=== PATIENT | female | born 1995 | race American Indian/Alaskan Native ===

== ENCOUNTER 2018-08-20 02:17 | Emergency (ER) | payer SELFPAY ==
[2018-08-20 02:35] VITALS: BP 101/62; PULSE 119; RESP 18; TEMP 98.7; O2SAT 99
[2018-08-20] MEDS ORDERED: Lidocaine Hydrochloride 1% 10 ML ONE (02:44)
--- NOTE | 2018-08-20 04:07 | ED PDOC ---
HPI: Trauma/Fall - HPI Time Seen by Provider: 08/20/18 02:37 Chief Complaint (Nursing): Abnormal Skin Integrity Chief Complaint (Provider): Laceration to the upper lip History Per: Patient History/Exam Limitations: no limitations Onset/Duration Of Symptoms: Mins (forty minutes) Severity: Mild Additional Complaint(s): Pt presents to the ED after slipping and falling during her birthday celebration earlier this evening and causing a 3cm laceration to the upper internal lip. Pt bleeding is undercontrol but there is significant swelling and ecchymosis surrounding the upper lip and the maxilla. Pt denies nausea, vomiting, diarhhea and LOC Past Medical History Reviewed: Historical Data, Nursing Documentation, Vital Signs Vital Signs: Last Vital Signs Temp 98.7 F 08/20/18 02:26 Pulse 119 H 08/20/18 02:26 Resp 18 08/20/18 02:26 BP 101/62 08/20/18 02:26 Pulse Ox 99 08/20/18 02:26 - Medical History PMH: Asthma Denies: Chronic Kidney Disease - Family History Family History: States: Unknown Family Hx - Home Medications Home Medications: Ambulatory Orders Medication Instructions Recorded Amoxicillin/Clavulanate [Augmentin 1 tab PO BID #20 tab 08/20/18 875 MG-125 MG] - Allergies Allergies/Adverse Reactions: Allergies Allergy/AdvReac Type Severity Reaction Status Date / Time sheridan Allergy Mild RASH Verified 08/20/18 02:35 Review of Systems ROS Statement: Except As Marked, All Systems Reviewed And Found Negative ENT: Positive for: Other (facial pain and laceration) Physical Exam - Reviewed Nursing Documentation Reviewed: Yes Vital Signs Reviewed: Yes - Physical Exam Appears: Positive for: Well, Non-toxic, No Acute Distress. Negative for: Uncomfortable Head Exam: Negative for: ATRAUMATIC, NORMAL INSPECTION (left side upper interior lip with a 3cm horizontal laceration; pt indicates that she also chipped a tooth, apparently #12, but patient is not certain as there is less than superior dentition) Skin: Positive for: Normal Color, Warm, Dry. Negative for: Diaphoresis, Pallor, Rash Eye Exam: Positive for: Normal appearance, PERRL. Negative for: Nystagmus, Periorbital swelling, Periorbital tenderness ENT: Negative for: Normal ENT Inspection (see note above) Neck: Positive for: Normal, Supple Cardiovascular/Chest: Positive for: Regular Rate, Rhythm Respiratory: Positive for: Normal Breath Sounds Pulses-Dorsalis Pedis (L): 2+ Pulses-Dorsalis Pedis (R): 2+ Pulses-Radial (L): 2+ Pulses-Radial (R): 2+ - ECG O2 Sat by Pulse Oximetry: 99 Medical Decision Making Medical Decision Making: I: Laceration to the lip r/o fx or other trauma to maxilla P: CT facial Lac repair Pt has refused the CT of the facial bones and will execute a AMA form prior to discharge Lac repair performed Pt is stable for discharge with rx of augmentin Procedures - Additional Procedures Progress: Pt laceration was explored for foreign bodies and irrigated with 300ml of NS; pt was anestiz with 3ml of 1% lidocaine without epinephrine; utilizing sterile precedures, three 5-0 monocril sutures were placed using interrupted placement; the wound edges were well approximated and the patinet tolerated the procedure well Disposition - Clinical Impression Clinical Impression: Laceration, Lip laceration - Patient ED Disposition Is Patient to be Admitted: No Counseled Patient/Family Regarding: Diagnosis, Need For Followup, Rx Given - Disposition Disposition: Against Medical Advice Disposition Time: 04:14 Condition: STABLE Prescriptions: Amoxicillin/Clavulanate [Augmentin 875 MG-125 MG] 1 tab PO BID #20 tab Instructions: Wound Care (DC), Laceration Repair With Stitches (DC)
== END 2018-08-20 04:15 | disposition left against medical advice (07) ==
LOC: H.ER 02:17
DX: S01.511A Laceration without foreign body of lip, initial encounter (principal); W01.0XXA Fall on same level from slipping, tripping and stumbling without subsequent striking against object, initial encounter; Y92.89 Other specified places as the place of occurrence of the external cause